=== PATIENT | male | born 1975 | race Caucasian/White ===

== ENCOUNTER 2023-07-21 10:48 | Emergency (ER) | payer OTHER, SELFPAY ==
[2023-07-21 10:52] VITALS: BP 149/102; PULSE 73; RESP 18; TEMP 36.3; O2SAT 95; BMI 30.8
--- NOTE | 2023-07-21 11:44 | ED_ITS ---
HPI - Skin/Abscess/Foreign Bdy General Time Seen by Provider: 11:45 Date Seen: 07/21/23 Chief complaint: Skin/Abscess/Foreign Body Stated complaint: Squirrel bite L index finger Time Seen by Provider: 07/21/23 11:44 Source: patient and RN notes reviewed Mode of arrival: ambulatory Limitations: no limitations History of Present Illness HPI narrative: This 48-year-old male is coming in after his left index finger was bit by a squirrel. He found a squirrel lying in his yd that seemed to be paralyzed in the back and. He went to move the squirrel from the yd to the bird feeder area where the squirrel could get food. The squirrel unfortunately bit on to his index finger, was hanging onto his fingers with his paw. He had to pry the squirrel off of his finger. He has a cut on the pad of the left 2nd index finger. It has stopped bleeding. He did state it did bleed. He is sure that his tetanus is not up-to-date, has certainly been over 3 years. We will updated today at his request. We did review that I do have a phone call in to the rabies center at the [facility], had to leave a message. Squirrels are considered low risk and do not require rabies prophylaxis usually. He is wondering if this coral maybe fell out of a tree, did not have any traumatic manager exchange its for like it had been hit by a car or was run over. Review of Systems Narrative: As per HPI. PFSH PFSH Social History Smoking Status: Former smoker Do you use any of these nicotine containing products: None Second hand tobacco smoke exposure: No How often do you have a drink containing alcohol: 4 or more times a week How many standard drinks containing alcohol do you have on a typical day: 5 or 6 How often do you have six or more drinks on one occasion: Weekly AUDIT-C Alcohol total score: 9 Non-prescribed substance use: denies use service: Yes Exam Const: Vital Signs, click to edit/add: Vital Signs - 24 hr 07/21/23 10:52 Temperature 97.4 F L Pulse Rate [Pulse Oximeter] 73 Respiratory Rate 18 Blood Pressure [Ri ght Upper Arm] 149/102 H Pulse Oximetry 95 Oxygen Delivery Me thod Room Air Patient is alert, interactive, no apparent distress. He has a cut on the pad of his left index finger which is not bleeding any longer. Wound edges are together. There is no surrounding erythema or tissue change. This bite kelvin is about 5 mm long. Full range of motion. Documenting provider has reviewed patient's vital signs: yes Course Course ED Course: Patient does live in town, will confirm with [facility] regarding the rabies prophylaxis but will not make him wait here for call back. They are happy to come back if it is recommended that he receive rabies prophyl axis and vaccine. Will update his tetanus. Nursing staff will clean the wound. Will send in antibiotics for wound infection prophylaxis. They would like the antibiotics and the tetanus both. Consultations Consultation #1: Left message on voicemail to contact us back regarding this squirrel bite. Time: 12:02 Vital Signs Vital signs: Initial Vital Signs Temperature 97.4 F L 07/21/23 10:52 Temperature Source Temporal Artery Scan 07/21/23 10:52 Pulse Rate 73 07/21/23 10:52 Pulse Rhythm Regular 07/21/23 10:52 Respiratory Rate 18 07/21/23 10:52 Blood Pressure 149/102 H 07/21/23 10:52 Blood Pressure Mean 117 H 07/21/23 10:52 Blood Pressure Position Sitting 07/21/23 10:52 Pulse Oximetry 95 07/21/23 10:52 Oxygen Delivery Method Room Air 07/21/23 10:52 Vital Signs Temperature 97.4 F L 07/21/23 10:52 Pulse Rate 73 07/21/23 10:52 Respiratory Rate 18 07/21/23 10:52 Blood Pressure 149/102 H 07/21/23 10:52 Pulse Oximetry 95 07/21/23 10:52 Oxygen Delivery Method Room Air 07/21/23 10:52 Temperature 97.4 F L 07/21/23 10:52 Pulse Rate 73 07/21/23 10:52 Respiratory Rate 18 07/21/23 10:52 Blood Pressure 149/102 H 07/21/23 10:52 Pulse Oximetry 95 07/21/23 10:52 Oxygen Delivery Method Room Air 07/21/23 10:52 Discharge Plan Discharge Activity Level: Activity as Tolerated
[2023-07-21] MEDS: TETANUS/DIPHTH/PERTUSSIS 0.5 ML SYRINGE IM (12:19)
== END 2023-07-21 12:32 | disposition home or self-care (01) ==
PROVIDERS: Emergency Provider Family Medicine
DX: S61.251A Open bite of left index finger without damage to nail, initial encounter (principal); W53.21XA Bitten by squirrel, initial encounter; Z23 Encounter for immunization
CPT/HCPCS: 90471; 90715; 99283